=== PATIENT | female | born 1960 | race Caucasian/White ===

== ENCOUNTER → 2019-01-12 | Outpatient (CLI) | payer OTHER ==
[~2019-01-12] MED LIST: ANASPAZ0.125 MG; DARVOCET-N 1001 EAC1; DOXEPIN 25 MG C25 MG; ENTOCORT EC 3 MG3 MG; FLUOXETINE HCL40 MG PO; PERCOCET PO; PROZAC 20 MG20 M1; REMERON15 MG PO; RITALIN10 MG PO; VICODIN 5-5001 EACH; XANAX 0.25 MG0.25 MG PO; XANAX 0.5 MG0.5 MG; ZANAFLEX4 MG PO
== END ==
LOC: M.RAD 10:58
DX: S52.502A Unspecified fracture of the lower end of left radius, initial encounter for closed fracture (principal); W19.XXXA Unspecified fall, initial encounter; Y93.89 Activity, other specified; Y92.89 Other specified places as the place of occurrence of the external cause; Y99.8 Other external cause status

== ENCOUNTER → 2020-05-02 | Outpatient (CLI) | payer MEDICARE | LOC: M.RAD 08:23 | PROVIDERS: ATTEND Internal Medicine | DX: Z12.31 Encounter for screening mammogram for malignant neoplasm of breast (principal); J44.1 Chronic obstructive pulmonary disease with (acute) exacerbation ==